=== PATIENT | female | born 1945 | race African-American/Black ===

== ENCOUNTER 2021-07-28 14:27 | Inpatient (IN) | payer OTHER ==
[~2021-07-28] VITALS: Ht 160 cm; Wt 77.1 kg
--- NOTE | 2021-07-28 15:16 | NUR ---
DR SHAFFER AT PT'S BEDSIDE
--- NOTE | 2021-07-28 15:55 | NUR ---
TAKEN TO CT
[2021-07-28 17:33] LABS: CALCIUM, SERUM 9.6 mg/dL (8.5-10.1); POTASSIUM 3.2 mmol/L (3.5-5.1)
[2021-07-28 18:23] LABS: BASOPHILS % (AUTO) 1.3 % (0.0-2.0); EOSINOPHILS % (AUTO) 3.7 % (0.0-6.0); HEMATOCRIT 40 % (33-45); HEMOGLOBIN 12.9 g/dL (11.5-14.8); LYMPHOCYTES # (AUTO) 1.5 K/uL (0.8-4.8); LYMPHOCYTES % (AUTO) 50.7 % (20.0-44.0); MEAN CORPUSCULAR HGB CONC 32 g/dl (31.0-36.0); MEAN CORPUSCULAR VOLUME 84 fL (82-100); MONOCYTES # (AUTO) 0.3 K/uL (0.1-1.30); NEUTROPHILS % (AUTO) 34.3 % (43.0-81.0); PLATELET COUNT (AUTO) 254 K/uL (150-450); RED BLOOD CELL COUNT(AUTO) 4.78 MIL/uL (4.0-5.2); WHITE BLOOD COUNT (AUTO) 2.9 K/uL (4.3-11.0)
--- NOTE | 2021-07-28 19:25 | NUR ---
MOVE SHEET SUBMITTED.
[2021-07-28] MEDS ORDERED: ASPIRIN 325 MG TABLET PO ONE (19:30)
[2021-07-28] MEDS ORDERED: POTASSIUM CHLORIDE 20 MEQ TAB.PRT.SR PO ONE ×2 (19:30→19:42)
--- NOTE | 2021-07-28 19:30 | NUR ---
[facility] CALLED RECEPTIONIST SCHEDULER PAGED.
[2021-07-28] MEDS ORDERED: ASPIRIN 325 MG TABLET ONE (19:42)
--- NOTE | 2021-07-28 20:37 | NUR ---
RECEIVED PATINET IN BED RESTING. PATIENT VSS. NO ACUTE DISTRESS NOTED. PATIENT TOOK MEDS ORDERED PER MED. PATIENT CONNECTED TO DIRECTOR REPORT AND POX. WILL CONTINUE TO MONITOR.
[2021-07-28] MEDS ORDERED: ACETAMINOPHEN 325 MG TABLET PO PRN (22:00)
[2021-07-28] MEDS ORDERED: ONDANSETRON HCL/PF 4 MG/2 ML VIAL IVP PRN (22:00)
[2021-07-28] MEDS ORDERED: MAGNESIUM HYDROXIDE 30 ML UDC PO PRN (22:00)
[2021-07-28] MEDS: BLOOD SUGAR DIAGNOSTIC 1 EACH STRIP IN SCH (22:00)
[2021-07-28] MEDS ORDERED: ZOLPIDEM TARTRATE 5 MG TABLET PO PRN (22:00)
[2021-07-28] MEDS ORDERED: Z GUARD REMEDY 4 OZ OINT TP PRN (22:00)
[2021-07-28] MEDS ORDERED: MAG HYDROX/AL HYDROX/SIMETH 30 ML UDC PO PRN (22:00)
--- NOTE | 2021-07-28 22:30 | NUR ---
REPORT GIVEN TO 3 [facility] NURSE PENDING COVID RESULTS
--- NOTE | 2021-07-28 22:55 | NUR ---
PATIENT ARRIVED FROM ER, AWAKE, A/O X4. NO S/S OF DISTRESS NOTED. NO COMPLAIN OF PAIN. CALL LIGHT INSTRUCTED, PATIENT VERBALIZED UNDERSTANDING. AMBULATORY. PATIENT REFUSED THE TELE MONITOR ELECTRODES.
[2021-07-28 23:00] VITALS: BP 166/67
--- NOTE | 2021-07-28 23:02 | NUR ---
PATIENT TRANSFERRED UNDER ACLS
[2021-07-29] LABS: THYROID STIMULATING HORMONE 0.867 uIU/mL (0.358-3.74)
[2021-07-29 02:21] VITALS: BP 140/72
[2021-07-29] MEDS: BLOOD SUGAR DIAGNOSTIC 1 EACH STRIP IN SCH ×6 (06:00→17:36)
--- NOTE | 2021-07-29 06:56 | NUR ---
blood sugar [id number], no insulin given.
[2021-07-29 07:16] LABS: BASOPHILS % (AUTO) 1.2 % (0.0-2.0); EOSINOPHILS % (AUTO) 4.2 % (0.0-6.0); HEMATOCRIT 37 % (33-45); LYMPHOCYTES # (AUTO) 1.4 K/uL (0.8-4.8); LYMPHOCYTES % (AUTO) 43.2 % (20.0-44.0); MEAN CORPUSCULAR HGB CONC 33 g/dl (31.0-36.0); MEAN CORPUSCULAR VOLUME 84 fL (82-100); MONOCYTES # (AUTO) 0.3 K/uL (0.1-1.30); MONOCYTES % (AUTO) 10.4 % (2.0-12.0); NEUTROPHILS # (AUTO) 1.3 K/uL (1.8-8.9); PLATELET COUNT (AUTO) 217 K/uL (150-450); RED BLOOD CELL COUNT(AUTO) 4.33 MIL/uL (4.0-5.2); WHITE BLOOD COUNT (AUTO) 3.2 K/uL (4.3-11.0)
--- NOTE | 2021-07-29 07:20 | NUR ---
MS RN OPENING NOTES RECEIVED PT AWAKE IN BED IN NO ACUTE SIGNS OF DISTRESS. A/O X4. ABLE TO MAKE NEEDS KNOWN, DENIES PAIN OR ANY DISCOMFORTS AT THIS TIME. ON ROOM AIR, TOLERATING WELL, BREATHING IS EVEN AND UNLABORED. 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 IV ACCESS ON RAC G#20 INTACT AND PATENT. SAFETY MEASURES ARE IN PLACE: BED IS LOCKED AND IN LOWEST POSITION, SIDE RAILS UPx2, CALL LIGHT AND BED SIDE TABLE WITHIN EASY REACH OF PT. WILL CONTINUE TO MONITOR.
[2021-07-29 07:35] LABS: CALCIUM, SERUM 8.8 mg/dL (8.5-10.1); CREATININE 0.7 mg/dL (0.6-1.3); MAGNESIUM 2.1 mg/dL (1.8-2.4); PHOSPHORUS 3.9 mg/dL (2.5-4.9); POTASSIUM 3.5 mmol/L (3.5-5.1)
[2021-07-29 08:00] VITALS: BP 150/107
[2021-07-29] MEDS ORDERED: METOPROLOL TARTRATE 25 MG TABLET PO SCH (09:00)
[2021-07-29] MEDS ORDERED: ASPIRIN EC 325 MG TABLET.DR PO SCH (09:00)
[2021-07-29] MEDS ORDERED: ATORVASTATIN 10 MG TABLET PO SCH (09:00)
[2021-07-29 10:49] LABS: THYROID STIMULATING HORMONE 1.031 uIU/mL (0.358-3.74)
--- NOTE | 2021-07-29 11:36 | NUR ---
RN NOTES ASKED PATIENT IF SHE IS TAKING ANY HOME MEDICATION/S AND STATED "NO, I'M NOT TAKING ANY MEDICATIONS, I'M PRETTY MUCH HEALTHY"
--- NOTE | 2021-07-29 13:35 | NUR ---
RN NOTES CALLED RADIOLOGY, SPOKED TO CRISTOPHER AND ASKED WHAT TIME THEY CAN DO "CTA" FOR PT. CRISTOPHER STATED THAT THEY DON'T HAVE NURSE TO ASSIST THEM TODAY, SO THEY WILL DO IT TOMORROW. WILL ENDORSE
--- NOTE | 2021-07-29 15:45 | NUR ---
RN NOTES PT PICKED-UP FOR MRI OF BRAIN VIA WHEELCHAIR
[2021-07-29 16:00] VITALS: BP 164/74
--- NOTE | 2021-07-29 16:29 | NUR ---
RN NOTES PT RETURNED TO UNIT VIA WHEELCHAIR. PER RETAIL PHARMACY MANAGER JOSE ANTONIO, MRI OF BRAIN WAS NOT DONE PT FREAKED OUT AND GOT SCARE AFTER ONLY FEW MINUTES ON THE PROCEDURE, PT THEN REFUSED TO CONTINUE. PT THEN BROUGHT TO UNIT. LEFT MESSAGE TO DR MOMIN REGARDING PT'S REFUSAL.
--- NOTE | 2021-07-29 17:43 | NUR ---
RN NOTES PT DRESSED UP TO HER CIVILIAN CLOTHESM PREPARED ALL HER BELONGINGS AND VERY ANXIOUS TO GO HOME. EXPLAINED THAT SHE WASN'T CLEARED BY MD TO GO HOME YET BUT SHE INSISTED OF GOING HOME. PT EXPLAINED RISKS AND CONSEQUENCES OF GOING HOME AGAINST MEDICAL ADVICE, EXPLAINED BENEFITS OF CONTINUED TREATMENT AND HOSPITALIZATION, BUT STILL DIDN'T WANT TO STAY. DAUGHTER YENI CAME TO UNIT AND AGREED TO TAKE HER MOM HOME AGAINST MEDICAL ADVICE. LEAVING AGAINST MEDICAL ADVICE OR TREATMENT FORM SIGNED BY PT IN THE PRESENCE OF HER DAUGHTER YENI. ALL PT'S BELONGINGS ACCOUNTED FOR AND BELONGINGS LIST SIGNED BY DAUGHTER. MD MADE AWARE OF PT'S AMA. CHARGE NURSE AWARE OF AMA.
--- NOTE | 2021-07-31 11:08 | NUR ---
SW received consult for: TIA Pt. has depart from hospital over the weekend. SW was not able to meet with pt.
== END 2021-07-29 17:20 | disposition left against medical advice (07) | DRG 69 ==
LOC: ER 14:31 → TELE 22:09
PROVIDERS: ADMIT Family Medicine
DX: G45.9 Transient cerebral ischemic attack, unspecified (principal); I21.4 Non-ST elevation (NSTEMI) myocardial infarction; F41.9 Anxiety disorder, unspecified; Z88.0 Allergy status to penicillin; I10 Essential (primary) hypertension; R29.700 NIHSS score 0; I44.7 Left bundle-branch block, unspecified; I49.3 Ventricular premature depolarization; I70.0 Atherosclerosis of aorta; D72.819 Decreased white blood cell count, unspecified; E87.6 Hypokalemia; J32.0 Chronic maxillary sinusitis
CPT/HCPCS: 36415; 70450-TC; 71045-TC; 80048-TC; 80061-TC; 82962-TC; 83735-TC; 83880; 84100-TC; 84439-TC; 84443-TC; 84484-TC; 85025-TC; 85652-TC; 85730-TC; 87081-TC; 97110-TC; 97116-TC; 97530-TC; G0378; J7040

== ENCOUNTER 2021-08-07 09:49 | Inpatient (IN) | payer OTHER ==
[~2021-08-07] VITALS: Ht 160 cm; Wt 61.7 kg
[2021-08-07 10:27] LABS: EOSINOPHILS % (AUTO) 2.8 % (0.0-6.0); HEMATOCRIT 36 % (33-45); HEMOGLOBIN 11.9 g/dL (11.5-14.8); LYMPHOCYTES # (AUTO) 1.6 K/uL (0.8-4.8); LYMPHOCYTES % (AUTO) 38.2 % (20.0-44.0); MEAN CORPUSCULAR HGB CONC 33 g/dl (31.0-36.0); MEAN CORPUSCULAR VOLUME 84 fL (82-100); MONOCYTES # (AUTO) 0.3 K/uL (0.1-1.30); MONOCYTES % (AUTO) 7.1 % (2.0-12.0); NEUTROPHILS # (AUTO) 2.2 K/uL (1.8-8.9); NEUTROPHILS % (AUTO) 50.9 % (43.0-81.0); PLATELET COUNT (AUTO) 232 K/uL (150-450); RED BLOOD CELL COUNT(AUTO) 4.35 MIL/uL (4.0-5.2); WHITE BLOOD COUNT (AUTO) 4.3 K/uL (4.3-11.0)
[2021-08-07 11:00] LABS: CALCIUM, SERUM 9.5 mg/dL (8.5-10.1); CREATININE 0.9 mg/dL (0.6-1.3); POTASSIUM 3.4 mmol/L (3.5-5.1)
[2021-08-07] MEDS ORDERED: ACETAMINOPHEN 325 MG TABLET PO PRN (12:00)
[2021-08-07] MEDS ORDERED: MAGNESIUM HYDROXIDE 30 ML UDC PO PRN (12:00)
[2021-08-07] MEDS ORDERED: ASPIRIN 81 MG TAB.CHEW PO SCH (12:00)
[2021-08-07] MEDS ORDERED: MAG HYDROX/AL HYDROX/SIMETH 30 ML UDC PO PRN (12:00)
[2021-08-07] MEDS ORDERED: Z GUARD REMEDY 4 OZ OINT TP PRN (12:00)
[2021-08-07] MEDS ORDERED: ENOXAPARIN SODIUM 40 MG/0.4 ML DISP.SYRIN SQ SCH (12:00)
[2021-08-07] MEDS ORDERED: ZOLPIDEM TARTRATE 5 MG TABLET PO PRN (12:00)
[2021-08-07] MEDS ORDERED: ONDANSETRON HCL/PF 4 MG/2 ML VIAL IVP PRN (12:00)
[2021-08-07] MEDS ORDERED: METOPROLOL TARTRATE 50 MG TABLET PO SCH (12:00)
[2021-08-07] MEDS ORDERED: METOPROLOL TARTRATE 50 MG TABLET ONE (13:08)
[2021-08-07] MEDS ORDERED: ASPIRIN 81 MG TAB.CHEW ONE (13:40)
[2021-08-07] MEDS ORDERED: METOPROLOL TARTRATE INJ 5 MG/5 ML AMPUL ONE (14:14)
[2021-08-07] MEDS ORDERED: NITROGLYCERIN 0.4 MG/TAB BOTTLE ONE ×2 (14:14→15:03)
[2021-08-07] MEDS ORDERED: IOHEXOL-350 100 ML VIAL IV ONE (14:14)
[2021-08-07] MEDS ORDERED: METOPROLOL TARTRATE INJ 5 MG/5 ML AMPUL IVP PRN (14:30)
[2021-08-07] MEDS ORDERED: NITROGLYCERIN 0.4 MG/TAB BOTTLE SL ONE (14:30)
[2021-08-07] MEDS ORDERED: ENOXAPARIN SODIUM 40 MG/0.4 ML DISP.SYRIN SQ ONE (15:03)
[2021-08-07 15:07] VITALS: BP 150/75
== END 2021-08-07 16:15 | disposition home or self-care (01) | DRG 282 ==
LOC: ER 09:53 → TRANSITION 14:06
PROVIDERS: ADMIT Nurse Practitioner Acute Care; ATTEND Nurse Practitioner Acute Care
DX: I21.4 Non-ST elevation (NSTEMI) myocardial infarction (principal); F41.9 Anxiety disorder, unspecified; I49.3 Ventricular premature depolarization; Z88.0 Allergy status to penicillin; I44.7 Left bundle-branch block, unspecified; E87.6 Hypokalemia; Z91.14 Patient's other noncompliance with medication regimen; I70.0 Atherosclerosis of aorta; I10 Essential (primary) hypertension
CPT/HCPCS: 36415; 71045-TC; 75574; 80048-TC; 84484-TC; 85025-TC; 87081-TC; C9803; G0378; J1650; J3490; Q9967

== ENCOUNTER 2022-02-02 09:28 | Emergency (ER) | payer OTHER ==
[~2022-02-02] VITALS: Ht 160 cm; Wt 61.2 kg
[2022-02-02 09:40] VITALS: BP 165/85
--- NOTE | 2022-02-02 09:48 | NUR ---
The patient bibs for c/o pain/swelling,palm of left hand x 5 days, can't recall any trauma. Rates pain 2/10. Will continue to monitor the patient.
[2022-02-02] MEDS ORDERED: IBUP-1955 PO (10:47)
--- NOTE | 2022-02-02 10:59 | NUR ---
Patient discharged to home in stable condition. Written and verbal after care instructions given. Patient verbalizes understanding of instruction.
== END 2022-02-02 11:00 | disposition home or self-care (01) ==
LOC: ER 09:32
DX: M11.242 Other chondrocalcinosis, left hand (principal); M79.642 Pain in left hand; F41.9 Anxiety disorder, unspecified; Z88.0 Allergy status to penicillin
CPT/HCPCS: 73130-TC

== ENCOUNTER 2022-02-24 14:24 | Emergency (ER) | payer OTHER ==
[~2022-02-24] VITALS: Ht 157.5 cm; Wt 56.7 kg
[~2022-02-24 14:24] MED LIST: IBUP-1955 PO
[2022-02-24 14:45] VITALS: BP 189/107
--- NOTE | 2022-02-24 14:45 | NUR ---
BIBS C/O LEFT HAND PAIN 12/22 X2DAYS P/S 12/22
--- NOTE | 2022-02-24 15:43 | NUR ---
Patient discharged to home in stable condition. Written and verbal after care instructions given. Patient verbalizes understanding of instruction.
== END 2022-02-24 15:44 | disposition home or self-care (01) ==
LOC: ER 14:30
DX: M11.242 Other chondrocalcinosis, left hand (principal); M79.642 Pain in left hand; F41.9 Anxiety disorder, unspecified; Z88.0 Allergy status to penicillin
CPT/HCPCS: 73130-TC

== ENCOUNTER 2022-12-23 09:56 | Emergency (ER) | payer OTHER ==
[~2022-12-23] VITALS: Ht 160 cm; Wt 68.5 kg
--- NOTE | 2022-12-23 10:49 | NUR ---
xray at bedside
--- NOTE | 2022-12-23 10:55 | NUR ---
BIB RELATIVE C/O RIGHT ARM PAIN SINCE YESTERDAY. PT DENIES TRAUMA. ALSO C/O COUGH CONGESTION X 3 WEEKS.
--- NOTE | 2022-12-23 11:15 | NUR ---
behavioral health case manager, left contact # [phone] option 2 in case of admission.
--- NOTE | 2022-12-23 12:04 | NUR ---
Patient discharged to home in stable condition. Written and verbal after care instructions given. Patient verbalizes understanding of instruction.
[2022-12-23 12:06] VITALS: BP 140/80
== END 2022-12-23 12:04 | disposition home or self-care (01) ==
LOC: ER 09:58
DX: R05.9 Cough, unspecified (principal); Z79.899 Other long term (current) drug therapy; Z88.0 Allergy status to penicillin
CPT/HCPCS: 71045-TC